=== PATIENT | female | born 1940 | race Caucasian/White ===

== ENCOUNTER 2018-01-26 13:12 | Emergency (ER) | payer MEDICARE, BC ==
[~2018-01-26] VITALS: Ht 165.1 cm; Wt 90.5 kg
[2018-01-26 13:31] VITALS: Ht 165.1 cm; Wt 90.5 kg
[2018-01-26] MEDS ORDERED: AZOPT 1% OPHT D10 ML EACH EYE (13:48)
[2018-01-26] MEDS ORDERED: NEURONTIN600 MG PO (13:49)
[2018-01-26] MEDS ORDERED: HYDROCODON-ACE1 EAC7 PO (13:49)
[2018-01-26] MEDS ORDERED: PRAVACHOL20 MG PO (13:49)
[2018-01-26] MEDS ORDERED: FUROSEMIDE20 MG PO (14:07)
[2018-01-26] MEDS ORDERED: PLAVIX75 MG PO (14:07)
[2018-01-26] MEDS ORDERED: ELAVIL75 MG PO (14:07)
[2018-01-26] MEDS ORDERED: LEVOXYL100 MCG PO (14:07)
[2018-01-26] MEDS ORDERED: GLUCOPHAGE500 MG PO (14:08)
[2018-01-26] MEDS ORDERED: CALCIUM 600 +1 EAC3 PO (14:09)
[2018-01-26] MEDS ORDERED: PROBIOTIC1 EAC1 PO (14:09)
[2018-01-26] MEDS ORDERED: SLOW RELEASE I160 MG PO (14:09)
[2018-01-26] MEDS ORDERED: BAYER CHEWABLE81 MG PO (14:10)
[2018-01-26] MEDS ORDERED: CENTRUM SILVER1 EAC3 PO (14:10)
[2018-01-26] MEDS ORDERED: VITAMIN D31000 UNIT PO (14:10)
[2018-01-26] MEDS ORDERED: FISH OIL 1,0001 CA1 PO (14:10)
[2018-01-26] MEDS ORDERED: COLACE100 MG PO (14:11)
[2018-01-26] MEDS ORDERED: CO Q-10200 MG PO (14:11)
[2018-01-26] MEDS ORDERED: VITAMIN B-121000 MCG PO (14:11)
[2018-01-26] MEDS ORDERED: CINNAMON500 MG PO (14:12)
[2018-01-26 14:15] LABS: BASOPHILS 0.4 % (0-2); EOSINOPHILS 4.4 % (0-7); HEMATOCRIT 38.7 % (36.0-48.0); HEMOGLOBIN 12.3 g/dL (12-16); LYMPHOCYTES 20.4 % (15-50); MCH 29.4 pg (26.0-34.0); MCHC 31.8 g/dL (31.0-37.0); MCV 92.6 fL (80.0-100.0); MEAN PLATELET VOLUME 10.5 fL (7.4-10.4); MONOCYTES 16.5 % (2-11); NEUTROPHILS 58.3 % (40-80); PLATELET COUNT 163 10x3/uL (130-400); RBC 4.18 10x6/uL (4.00-5.40); RDW 14.1 % (11.5-14.5)
[2018-01-26 14:24] LABS: INR 1.09 (0.85-1.17); PROTIME 13.7 SECONDS (11.6-15.0)
[2018-01-26 14:26] LABS: D-DIMER-QUANTITATIVE 1.01 ug/mLFEU (0.20-0.54)
[2018-01-26 14:38] LABS: ALKALINE PHOSPHATASE 63 U/L (46-116); ALT (SGPT) 17 U/L (10-68); BILIRUBIN - TOTAL 0.48 mg/dL (0.2-1.3); CALC OSMOLALITY 281 mosm/kg (275-300); CALCIUM 9.3 mg/dL (8.5-10.1); CARBON DIOXIDE 34.2 mmol/L (21.0-32.0); CHLORIDE - SERUM 104 mmol/L (98-107); GLUCOSE 104 mg/dL (74-106); POTASSIUM - SERUM 3.9 mmol/L (3.5-5.1); PROTEIN - SERUM 6.3 g/dL (6.4-8.2); SODIUM 142 mmol/L (136-145); UREA NITROGEN 10 mg/dL (7-18); eGFR NON AFRICAN AMERICAN 57 mL/min (90-120)
[2018-01-26 14:44] LABS: AMYLASE - SERUM 42 U/L (25-115); CKMB 0.7 U/L (0.0-3.6); CREATINE KINASE 49 UL (21-215); LIPASE 89 U/L (73-393); PRO BNP 322 pg/mL (0-450); TROPONIN-I < 0.017 ng/mL (0.000-0.060)
[2018-01-26 15:51] LABS: APPEARANCE CLEAR (CLEAR); BILIRUBIN NEGATIVE (NEGATIVE); COLOR YELLOW (YELLOW); GLUCOSE NEGATIVE (NEGATIVE); KETONE NEGATIVE (NEGATIVE); NITRITE POSITIVE (NEGATIVE); PROTEIN TRACE mg/dL (NEGATIVE); UROBILINOGEN NORMAL (NORMAL)
[2018-01-26 15:52] LABS: EPITHELIAL CELLS OCC /hpf (0-5); RED CELLS - URINE 0-5 /hpf (0-5); WHITE CELLS - URINE >50 /hpf (0-5)
[2018-01-26 15:53] LABS: BACTERIA MANY /hpf (NONE SEEN)
[2018-01-26] MEDS ORDERED: LEVAQUIN500 MG PO (17:36)
[2018-01-26] MEDS ORDERED: ZOFRAN4 MG PO (17:36)
[2018-01-26] MEDS ORDERED: PROTONIX40 MG PO (17:36)
[2018-01-26 18:12] VITALS: BP 129/57
== END 2018-01-26 18:15 | disposition home or self-care (01) ==
LOC: D.ER 13:12
PROVIDERS: Family Medicine
DX: N39.0 Urinary tract infection, site not specified (principal); K21.9 Gastro-esophageal reflux disease without esophagitis; R53.1 Weakness; R06.02 Shortness of breath; R11.0 Nausea; J44.9 Chronic obstructive pulmonary disease, unspecified; J45.909 Unspecified asthma, uncomplicated